=== PATIENT | female | born 1950 | race Caucasian/White ===

== ENCOUNTER 2018-01-01 14:41 | Emergency (ER) | payer MEDICARE, OTHER ==
[~2018-01-01] VITALS: Ht 167.6 cm; Wt 94.5 kg
[~2018-01-01 14:41] MED LIST: ASPI-1265 PO; BACL20TA11 PO; CLON0.2T37 PO; CLOP75TA33 PO; HYDR-3965 PO; HYT1T PO; LORA0.5T PO; LOSA50TA37 PO; NITR0.4T PO; PANT40TA4 PO; PARO-44 PO; SIMV40TA4 PO
[2018-01-01 14:49] VITALS: BP 195/92
[2018-01-01 15:18] LABS: BASOPHILS # (AUTO) 0.1 X10'3 (0-0.2); BASOPHILS % (AUTO) 0.5 % (0-1); EOSINOPHILS # (AUTO) 0.3 X10'3 (0-0.9); EOSINOPHILS % (AUTO) 2.6 % (0-6); HEMATOCRIT 45.7 % (35.0-45.0); HEMOGLOBIN 15.8 g/dl (12.0-16.0); LYMPHOCYTES # (AUTO) 2.5 X10'3 (1.1-4.8); LYMPHOCYTES % (AUTO) 23.5 % (21-51); MEAN CORPUSCULAR HEMOGLOBIN 30.4 PG (27.0-31.0); MEAN CORPUSCULAR HGB CONC 34.5 % (33.0-36.5); MEAN CORPUSCULAR VOLUME 88.2 FL (78-98); MEAN PLATELET VOLUME 8.7 FL (7.4-10.4); MONOCYTES # (AUTO) 0.7 X10'3 (0-0.9); MONOCYTES % (AUTO) 6.7 % (2-12); NEUTROPHILS % (AUTO) 66.7 % (42-75); PLATELET COUNT 174 X10'3 (140-440); RED BLOOD COUNT 5.18 X10'6 (4.20-5.60); RED CELL DISTRIBUTION WIDTH 14.8 % (11.5-14.5); WHITE BLOOD COUNT 10.6 X10'3 (4.5-11.0)
[2018-01-01 15:18] LABS: CLARITY,URINE SLIGHTLY CLOUDY (Clear); COLOR,URINE YELLOW (Yellow); GLUCOSE, URINE NEGATIVE (Neg); KETONES,URINE NEGATIVE (Neg); LEUKOCYTE ESTERASE ,URINE NEGATIVE (Neg); NITRITES, URINE NEGATIVE (Neg); OCCULT BLOOD,URINE TRACE-INTACT (Neg); PH,URINE 6.5 (4.8-8.0); PROTEIN,URINE NEGATIVE (Neg); UA COLLECTION TYPE CLN CATCH MIDSTREAM; UROBILINOGEN,URINE 0.2 E.U/dL (0.2-1.0)
[2018-01-01 15:24] LABS: BACTERIA,URINE 2+ /HPF (Neg); SQUAMOUS EPITHELIAL CELL,UR FEW /LPF (FEW); WBC,URINE 0-4 /HPF (0-4)
[2018-01-01 15:45] LABS: ALANINE AMINOTRANSFERASE 21 U/L (12-78); ALBUMIN 3.8 G/DL (3.4-5.0); ALBUMIN/GLOBULIN RATIO 0.8 (1.1-1.5); ALKALINE PHOSPHATASE 85 IU/L (46-116); ANION GAP 7 (8-16); ASPARTATE AMINO TRANSFERASE 15 U/L (10-37); BILIRUBIN,TOTAL 0.5 MG/DL (0.1-1.0); BLOOD UREA NITROGEN 12 MG/DL (7-18); BUN/CREATININE RATIO 13.6 (6.6-38.0); CHLORIDE 100 MMOL/L (99-107); CREATININE 0.88 MG/DL (0.40-0.90); GLUCOSE 112 MG/DL (70-104); LIPASE 68 U/L (73-393); POTASSIUM 3.5 MMOL/L (3.5-5.1); SODIUM 138 MMOL/L (135-145); TOTAL CARBON DIOXIDE 30.7 MMOL/L (24-32); TOTAL PROTEIN 8.5 G/DL (6.4-8.2); eGFR 64 ML/MIN
== END 2018-01-01 18:59 | disposition home or self-care (01) ==
LOC: ER 14:42
DX: R07.89 Other chest pain (principal); R10.11 Right upper quadrant pain; R11.2 Nausea with vomiting, unspecified; F17.200 Nicotine dependence, unspecified, uncomplicated; I10 Essential (primary) hypertension; J45.909 Unspecified asthma, uncomplicated; G89.29 Other chronic pain; E11.9 Type 2 diabetes mellitus without complications; Z98.61 Coronary angioplasty status; Z90.710 Acquired absence of both cervix and uterus; Z98.890 Other specified postprocedural states; F12.10 Cannabis abuse, uncomplicated; Z79.82 Long term (current) use of aspirin; Z79.899 Other long term (current) drug therapy; Z88.8 Allergy status to other drugs, medicaments and biological substances
CPT/HCPCS: 36415; 71045; 71100; 76700; 80053; 81001; 83690; 85025; 85610; 99285

== ENCOUNTER 2018-10-30 11:26 | Emergency (ER) | payer MEDICARE, OTHER ==
[~2018-10-30] VITALS: Ht 167.6 cm; Wt 94.8 kg
[~2018-10-30 11:26] MED LIST changes: -LOSA50TA37 PO; +LOSA50TA64 PO
[2018-10-30 12:32] LABS: BASOPHILS % (AUTO) 0.3 % (0-1); EOSINOPHILS # (AUTO) 0.2 X10'3 (0-0.9); EOSINOPHILS % (AUTO) 2.3 % (0-6); HEMATOCRIT 42.7 % (35.0-45.0); HEMOGLOBIN 14.5 g/dl (12.0-16.0); LYMPHOCYTES % (AUTO) 20.2 % (21-51); MEAN CORPUSCULAR HEMOGLOBIN 30.3 PG (27.0-31.0); MEAN CORPUSCULAR VOLUME 89.1 FL (78-98); MEAN PLATELET VOLUME 8.3 FL (7.4-10.4); MONOCYTES # (AUTO) 0.8 X10'3 (0-0.9); MONOCYTES % (AUTO) 8.1 % (2-12); NEUTROPHILS # (AUTO) 6.7 X10'3 (1.8-7.7); NEUTROPHILS % (AUTO) 69.1 % (42-75); PLATELET COUNT 177 X10'3 (140-440); RED BLOOD COUNT 4.79 X10'6 (4.20-5.60); RED CELL DISTRIBUTION WIDTH 13.9 % (11.5-14.5); WHITE BLOOD COUNT 9.8 X10'3 (4.5-11.0)
[2018-10-30 12:50] LABS: PARTIAL THROMBOPLASTIN TIME 26 SECONDS (22-32); PROTHROMBIN TIME 10.1 SECONDS (9.0-12.0)
[2018-10-30 12:56] LABS: ALANINE AMINOTRANSFERASE 27 U/L (12-78); ALBUMIN 3.7 G/DL (3.4-5.0); ALBUMIN/GLOBULIN RATIO 0.8 (1.1-1.5); ALKALINE PHOSPHATASE 86 IU/L (46-116); ANION GAP 10 (8-16); ASPARTATE AMINO TRANSFERASE 15 U/L (10-37); BILIRUBIN,TOTAL 0.5 MG/DL (0.1-1.0); BLOOD UREA NITROGEN 16 MG/DL (7-18); BUN/CREATININE RATIO 17.6 (6.6-38.0); CALCIUM 9.4 MG/DL (8.5-10.1); CHLORIDE 99 MMOL/L (99-107); CREATININE 0.91 MG/DL (0.40-0.90); GLUCOSE 117 MG/DL (70-104); POTASSIUM 3.8 MMOL/L (3.5-5.1); SODIUM 137 MMOL/L (135-145); TOTAL CARBON DIOXIDE 28.2 MMOL/L (24-32); TOTAL PROTEIN 8.2 G/DL (6.4-8.2); eGFR 62 ML/MIN
[2018-10-30] MEDS ORDERED: TAM75C PO (13:01)
[2018-10-30 13:02] VITALS: BP 136/68
[2018-10-30] MEDS ORDERED: oseltamivir phos 75mg capsule PO ONE (13:05)
[2018-10-30] MEDS ORDERED: acetaminophen 325mg tablet PO ONE (13:05)
== END 2018-10-30 13:30 | disposition home or self-care (01) ==
LOC: ER 11:27
DX: J06.9 Acute upper respiratory infection, unspecified (principal); J02.9 Acute pharyngitis, unspecified; I10 Essential (primary) hypertension; J45.909 Unspecified asthma, uncomplicated; E11.9 Type 2 diabetes mellitus without complications; G89.29 Other chronic pain; F17.200 Nicotine dependence, unspecified, uncomplicated; F12.90 Cannabis use, unspecified, uncomplicated; Z95.5 Presence of coronary angioplasty implant and graft; Z90.710 Acquired absence of both cervix and uterus; Z98.890 Other specified postprocedural states; Z88.8 Allergy status to other drugs, medicaments and biological substances; Z79.82 Long term (current) use of aspirin; Z79.899 Other long term (current) drug therapy
CPT/HCPCS: 36415; 71045; 80053; 84484; 85025; 85610; 85730; 93005; 99284

== ENCOUNTER 2019-09-28 09:52 | Emergency (ER) | payer MEDICARE ==
[~2019-09-28] VITALS: Ht 167.6 cm; Wt 103.0 kg
[~2019-09-28 09:52] MED LIST changes: +SIMV-45 PO; -SIMV40TA4 PO
[2019-09-28 10:07] VITALS: BP 158/70
[2019-09-28] MEDS ORDERED: orphenadrine citrate 60mg/2ml inj. IM ONE (11:20)
[2019-09-28] MEDS ORDERED: ketorolac tromethamine 15mg/ml inj. IM ONE (11:20)
== END 2019-09-28 12:25 | disposition home or self-care (01) ==
LOC: ER 09:53
DX: M48.56XA Collapsed vertebra, not elsewhere classified, lumbar region, initial encounter for fracture (principal); M51.37 Other intervertebral disc degeneration, lumbosacral region; M25.552 Pain in left hip; I10 Essential (primary) hypertension; J45.909 Unspecified asthma, uncomplicated; E11.9 Type 2 diabetes mellitus without complications; G89.29 Other chronic pain; M19.90 Unspecified osteoarthritis, unspecified site; Z95.5 Presence of coronary angioplasty implant and graft; Z90.710 Acquired absence of both cervix and uterus; Z98.890 Other specified postprocedural states; Z88.8 Allergy status to other drugs, medicaments and biological substances; Z79.82 Long term (current) use of aspirin; Z79.899 Other long term (current) drug therapy
CPT/HCPCS: 72100; 73502; 96372; 99284; J1885; J2360

== ENCOUNTER 2019-12-28 10:08 | Observation (INO) | payer MEDICARE ==
[~2019-12-28] VITALS: Ht 167.6 cm; Wt 107.7 kg
[2019-12-28 10:41] LABS: BASOPHILS # (AUTO) 0.1 X10'3 (0-0.2); BASOPHILS % (AUTO) 0.8 % (0-1); EOSINOPHILS # (AUTO) 0.1 X10'3 (0-0.9); EOSINOPHILS % (AUTO) 1.1 % (0-6); HEMATOCRIT 40.7 % (35.0-45.0); HEMOGLOBIN 14.1 g/dl (12.0-16.0); LYMPHOCYTES # (AUTO) 1.3 X10'3 (1.1-4.8); LYMPHOCYTES % (AUTO) 14.9 % (21-51); MEAN CORPUSCULAR HEMOGLOBIN 30.7 PG (27.0-31.0); MEAN CORPUSCULAR HGB CONC 34.7 g/dL (33.0-36.5); MEAN CORPUSCULAR VOLUME 88.5 FL (78-98); MONOCYTES # (AUTO) 0.5 X10'3 (0-0.9); MONOCYTES % (AUTO) 5.9 % (2-12); NEUTROPHILS # (AUTO) 6.8 X10'3 (1.8-7.7); NEUTROPHILS % (AUTO) 77.3 % (42-75); PLATELET COUNT 151 X10'3 (140-440); RED CELL DISTRIBUTION WIDTH 14.7 % (11.5-14.5); WHITE BLOOD COUNT 8.8 X10'3 (4.5-11.0)
[2019-12-28 10:51] LABS: ALANINE AMINOTRANSFERASE 19 U/L (12-78); ALBUMIN 3.4 G/DL (3.4-5.0); ALBUMIN/GLOBULIN RATIO 0.9 (1.1-1.5); ALKALINE PHOSPHATASE 74 IU/L (46-116); ANION GAP 6 (8-16); ASPARTATE AMINO TRANSFERASE 14 U/L (10-37); BILIRUBIN,TOTAL 0.4 MG/DL (0.1-1.0); BLOOD UREA NITROGEN 14 MG/DL (7-18); BUN/CREATININE RATIO 14.4 (6.6-38.0); CALCIUM 8.4 MG/DL (8.5-10.1); CHLORIDE 107 MMOL/L (99-107); CREATININE 0.97 MG/DL (0.40-0.90); GLUCOSE 143 MG/DL (70-104); POTASSIUM 3.7 MMOL/L (3.5-5.1); SODIUM 142 MMOL/L (135-145); TOTAL CARBON DIOXIDE 28.9 MMOL/L (24-32); eGFR 57 ML/MIN
[2019-12-28] MEDS ORDERED: OMEP-50 PO (11:47)
[2019-12-28] MEDS ORDERED: GABA-532 PO (11:50)
[2019-12-28] MEDS ORDERED: AMLO5TAB16 PO (11:50)
[2019-12-28] MEDS ORDERED: FURO20TA4 PO (11:50)
[2019-12-28] MEDS ORDERED: morphine 2 MG/ML inj. syringe IV PRN ×2 (12:00)
[2019-12-28] MEDS ORDERED: magnesium hydroxide 30ml (MOM) UD suspension PO PRN (12:00)
[2019-12-28] MEDS ORDERED: mag hydrox/Alum hydrox/simeth 30ml oral suspension PO PRN (12:00)
[2019-12-28] MEDS ORDERED: nitroGLYCERIN 0.4mg/hour patch TD ONE ×2 (12:00)
[2019-12-28] MEDS ORDERED: acetaminophen 325mg tablet PO PRN (12:00)
[2019-12-28 13:00] VITALS: BP 120/69
--- NOTE | 2019-12-28 13:55 | NUR ---
Patient admitted to PCU 3018A from ED. Patient able to self transfer from ED gurney to bed with SBA. Oriented to room and call light use. Patient items in reach. No complaints of chest pain or shortness of breath at this time. Admit VS taken and are stable. No signs of distress. MRSA swab taken and tele monitor applied. Will continue to monitor.
[2019-12-28] MEDS: ondansetron/PF 4mg/2ml inj IV PRN (14:26)
[2019-12-28] MEDS: normal saline 1000ml 1,000 ML IV SCH ×2 (14:29→23:24)
[2019-12-28] MEDS ORDERED: LORazepam 0.5 MG tablet PO PRN (14:50)
[2019-12-28] MEDS ORDERED: nitroGLYCERIN 0.4mg SUBLingual tab SL PRN (14:50)
--- NOTE | 2019-12-28 14:52 | NUR ---
PAGER ID: [phone] MESSAGE: Iram mcclelland [phone]. RE Ricci Billings [id number]. 3 hour troponin is 0.07, increased from 0.04 on initial. Has NTG patch, no current chest pain, has episodes of CP which have resolved. Thanks!
[2019-12-28] MEDS ORDERED: heparin 10,000 units/1 ML INJ IV PRN (14:55)
[2019-12-28] MEDS ORDERED: heparin 10,000 units/1 ML INJ IV ONE (14:55)
[2019-12-28 15:00] VITALS: BP 132/62
--- NOTE | 2019-12-28 15:45 | NUR ---
Rapid response called at this time, see intervention note for details.
[2019-12-28] MEDS ORDERED: LORazepam 2 mg/ml vial ONE (15:52)
[2019-12-28] MEDS ORDERED: LORazepam 2 mg/ml vial IV PRN (15:55)
--- NOTE | 2019-12-28 16:20 | NUR ---
Patient states that she does not take Plavix any longer, was on it prior after her cath but does not take this any longer.
[2019-12-28 16:24] LABS: BASOPHILS # (AUTO) 0.1 X10'3 (0-0.2); BASOPHILS % (AUTO) 0.9 % (0-1); EOSINOPHILS # (AUTO) 0.1 X10'3 (0-0.9); EOSINOPHILS % (AUTO) 1.4 % (0-6); HEMATOCRIT 45.5 % (35.0-45.0); HEMOGLOBIN 15.4 g/dl (12.0-16.0); LYMPHOCYTES # (AUTO) 2.6 X10'3 (1.1-4.8); LYMPHOCYTES % (AUTO) 27.8 % (21-51); MEAN CORPUSCULAR HEMOGLOBIN 30.4 PG (27.0-31.0); MEAN CORPUSCULAR VOLUME 89.5 FL (78-98); MEAN PLATELET VOLUME 8.9 FL (7.4-10.4); MONOCYTES # (AUTO) 0.6 X10'3 (0-0.9); MONOCYTES % (AUTO) 6.2 % (2-12); NEUTROPHILS # (AUTO) 5.9 X10'3 (1.8-7.7); NEUTROPHILS % (AUTO) 63.7 % (42-75); PLATELET COUNT 164 X10'3 (140-440); RED BLOOD COUNT 5.08 X10'6 (4.20-5.60); RED CELL DISTRIBUTION WIDTH 14.6 % (11.5-14.5); WHITE BLOOD COUNT 9.2 X10'3 (4.5-11.0)
[2019-12-28 16:26] LABS: PARTIAL THROMBOPLASTIN TIME 24 SECONDS (22-32)
[2019-12-28] MEDS: HYDROcodone/acetaminophen 5mg/325mg tablet PO PRN ×2 (16:29→23:22)
[2019-12-28] MEDS: heparin 25,000 UNIT/250ml bag 250 ML IV SCH ×2 (16:42→23:21)
--- NOTE | 2019-12-28 17:24 | NUR ---
PAGER ID: [phone] MESSAGE: Iram krystin [phone]. Ricci Billings [id number]. Patient's 6 hour trop is 0.08. On heparin drip. Also patient does not take Plavix any longer, do you want to d/c this medication? Thanks
[2019-12-28 18:00] VITALS: BP 109/50
--- NOTE | 2019-12-28 18:00 | NUR ---
Patient in room PCU 3018. I have received report from GIA LEACH and had the opportunity to ask questions and assume patient care.
--- NOTE | 2019-12-28 18:54 | NUR ---
Problems reprioritized. Patient report given, questions answered & plan of care reviewed with Lissette LEACH.
[2019-12-28] MEDS ORDERED: heparin, porcine 5000 units/ml vial SQ SCH (20:00)
[2019-12-28] MEDS: pantoprazole 40mg Tablet.DR PO SCH (21:25)
[2019-12-28] MEDS: cloNIDine 0.1 mg tablet PO SCH (21:25)
[2019-12-28] MEDS: gabapentin 300mg capsule PO SCH (21:25)
[2019-12-28] MEDS: Terazosin 1mg capsule PO SCH (21:26)
[2019-12-28] MEDS: losartan 50mg tablet PO SCH (21:26)
[2019-12-28 22:00] VITALS: BP 155/68
[2019-12-29] VITALS (14 sets, daily range): BP systolic 116–165; BP diastolic 46–82
[2019-12-29 05:49] LABS: ALBUMIN 3.1 G/DL (3.4-5.0); ANION GAP 5 (8-16); BLOOD UREA NITROGEN 17 MG/DL (7-18); BUN/CREATININE RATIO 17.9 (6.6-38.0); CALCIUM 8.9 MG/DL (8.5-10.1); CHLORIDE 108 MMOL/L (99-107); CREATININE 0.95 MG/DL (0.40-0.90); GLUCOSE 116 MG/DL (70-104); POTASSIUM 3.9 MMOL/L (3.5-5.1); SODIUM 141 MMOL/L (135-145); TOTAL CARBON DIOXIDE 28.4 MMOL/L (24-32); eGFR 58 ML/MIN
--- NOTE | 2019-12-29 06:00 | NUR ---
Problems reprioritized. Patient report given, questions answered & plan of care reviewed with LAMONT RN.
[2019-12-29 06:13] LABS: BASOPHILS # (AUTO) 0.1 X10'3 (0-0.2); BASOPHILS % (AUTO) 0.6 % (0-1); EOSINOPHILS # (AUTO) 0.2 X10'3 (0-0.9); EOSINOPHILS % (AUTO) 1.8 % (0-6); HEMATOCRIT 39.6 % (35.0-45.0); HEMOGLOBIN 13.6 g/dl (12.0-16.0); LYMPHOCYTES # (AUTO) 3.1 X10'3 (1.1-4.8); LYMPHOCYTES % (AUTO) 34.1 % (21-51); MEAN CORPUSCULAR HEMOGLOBIN 30.4 PG (27.0-31.0); MEAN CORPUSCULAR HGB CONC 34.3 g/dL (33.0-36.5); MEAN CORPUSCULAR VOLUME 88.7 FL (78-98); MEAN PLATELET VOLUME 9.5 FL (7.4-10.4); MONOCYTES # (AUTO) 0.7 X10'3 (0-0.9); MONOCYTES % (AUTO) 7.6 % (2-12); NEUTROPHILS # (AUTO) 5.1 X10'3 (1.8-7.7); NEUTROPHILS % (AUTO) 55.9 % (42-75); PLATELET COUNT 145 X10'3 (140-440); RED BLOOD COUNT 4.47 X10'6 (4.20-5.60); RED CELL DISTRIBUTION WIDTH 14.9 % (11.5-14.5); WHITE BLOOD COUNT 9.1 X10'3 (4.5-11.0)
[2019-12-29] MEDS: ondansetron/PF 4mg/2ml inj IV PRN (06:17)
--- NOTE | 2019-12-29 06:30 | NUR ---
Patient in room PCU 3018. I have received report from HANY Mclaughlin and had the opportunity to ask questions and assume patient care.
[2019-12-29] MEDS: normal saline 1000ml 1,000 ML IV SCH ×2 (07:57→20:11)
[2019-12-29] MEDS: SIMVASTATIN 60 MG PO SCH (08:00)
[2019-12-29] MEDS: losartan 50mg tablet PO SCH ×2 (09:55→20:11)
[2019-12-29] MEDS: amLODIPine 5mg tablet PO SCH (09:55)
[2019-12-29] MEDS: clopidogrel 75mg tablet PO SCH (09:55)
[2019-12-29] MEDS: cloNIDine 0.1 mg tablet PO SCH ×3 (09:55→20:11)
[2019-12-29] MEDS: furosemide 20MG tablet PO SCH ×2 (09:56→15:09)
[2019-12-29] MEDS: gabapentin 300mg capsule PO SCH ×3 (09:56→20:11)
[2019-12-29] MEDS: aspirin 81mg tab.chew PO SCH (09:56)
[2019-12-29] MEDS ORDERED: diphenhydrAMINE 25mg capsule PO ONE (12:15)
[2019-12-29] MEDS ORDERED: LORazepam 1 MG tablet PO PRN (12:35)
[2019-12-29] MEDS: HYDROcodone/acetaminophen 5mg/325mg tablet PO PRN ×2 (12:57→20:11)
[2019-12-29] MEDS ORDERED: fentaNYL/PF 50MCG/1 ML 2ML syringe ONE ×2 (13:32→14:08)
[2019-12-29] MEDS ORDERED: LIDOcaine 1% (10mg/ml)w/preservative injection 20ml MDV ONE (13:33)
[2019-12-29] MEDS ORDERED: iohexol 350 MG/ML 50ML vial IV ONE (13:33)
[2019-12-29] MEDS ORDERED: midazolam 2 mg/2 ml injection ONE ×2 (13:33→14:08)
[2019-12-29] MEDS ORDERED: iohexol 350MG/ML 100ml bottle IV ONE (13:33)
[2019-12-29] MEDS ORDERED: heparin 25,000 UNIT/250ml bag 250 ML IV ONE (13:48)
[2019-12-29] MEDS ORDERED: OXAZEpam 15mg capsule PO PRN (14:55)
[2019-12-29] MEDS ORDERED: normal saline 1000ml 1,000 ML IV ONE (14:55)
--- NOTE | 2019-12-29 15:30 | NUR ---
pt arrived from laboratory director. cath site is soft and without ecchymosis or hematoma; nontender. pt is to lie flat for 6 hours, until 0. post op vs initiated. placed on 4L O2 by RN from laboratory director. pt put in reverse Trendelenburg so that she may remain flat, but eat her lunch. will continue to monitor.
--- NOTE | 2019-12-29 16:54 | NUR ---
pt groin site is soft, without ecchymosis or hematoma. HR is slightly decreased in the 50's, but the pt is currently sleeping and easily aroused. O2 decreased to 1L from 2L and she is maintaining a saturation above 95%. will allow the pt to rest and continue to monitor.
--- NOTE | 2019-12-29 18:32 | NUR ---
Sent to Dr Matthews PAGER ID: [phone] MESSAGE: RE: Jeannette Billings [id number]. Pt having pain in RLL. Groin site soft, no hematoma. Please advise. -Mavis [phone]
--- NOTE | 2019-12-29 18:40 | NUR ---
Problems reprioritized. Patient report given, questions answered & plan of care reviewed with HANY Gamble.
--- NOTE | 2019-12-29 18:40 | NUR ---
Patient in room PCU 3018. I have received report from Shaunna LEACH and had the opportunity to ask questions and assume patient care.
--- NOTE | 2019-12-29 18:43 | NUR ---
Dr Matthews states the pt has been c/o belly pain x 2-3 days. Continue to monitor pt per Dr Matthews.
[2019-12-29] MEDS: pantoprazole 40mg Tablet.DR PO SCH (20:11)
[2019-12-29] MEDS: Terazosin 1mg capsule PO SCH (20:11)
[2019-12-30 02:00] VITALS: BP 138/60
[2019-12-30] MEDS: normal saline 1000ml 1,000 ML IV SCH (03:57)
[2019-12-30 05:39] LABS: ALBUMIN 3.1 G/DL (3.4-5.0); ANION GAP 7 (8-16); BLOOD UREA NITROGEN 17 MG/DL (7-18); BUN/CREATININE RATIO 18.1 (6.6-38.0); CALCIUM 8.7 MG/DL (8.5-10.1); CHLORIDE 105 MMOL/L (99-107); CREATININE 0.94 MG/DL (0.40-0.90); GLUCOSE 105 MG/DL (70-104); POTASSIUM 3.7 MMOL/L (3.5-5.1); SODIUM 141 MMOL/L (135-145); TOTAL CARBON DIOXIDE 29.3 MMOL/L (24-32); eGFR 59 ML/MIN
[2019-12-30 06:00] VITALS: BP 152/56
--- NOTE | 2019-12-30 06:19 | NUR ---
Problems reprioritized. Patient report given, questions answered & plan of care reviewed with Shaunna RN.
--- NOTE | 2019-12-30 06:24 | NUR ---
Patient in room PCU 3018. I have received report from HANY Gamble and had the opportunity to ask questions and assume patient care.
[2019-12-30 06:36] LABS: BASOPHILS % (AUTO) 0.6 % (0-1); EOSINOPHILS # (AUTO) 0.1 X10'3 (0-0.9); EOSINOPHILS % (AUTO) 1.8 % (0-6); HEMATOCRIT 40.8 % (35.0-45.0); HEMOGLOBIN 13.7 g/dl (12.0-16.0); LYMPHOCYTES # (AUTO) 2.2 X10'3 (1.1-4.8); LYMPHOCYTES % (AUTO) 31.6 % (21-51); MEAN CORPUSCULAR HEMOGLOBIN 29.9 PG (27.0-31.0); MEAN CORPUSCULAR HGB CONC 33.7 g/dL (33.0-36.5); MEAN CORPUSCULAR VOLUME 88.7 FL (78-98); MEAN PLATELET VOLUME 9.2 FL (7.4-10.4); MONOCYTES # (AUTO) 0.6 X10'3 (0-0.9); NEUTROPHILS # (AUTO) 4.1 X10'3 (1.8-7.7); PLATELET COUNT 145 X10'3 (140-440); RED CELL DISTRIBUTION WIDTH 14.9 % (11.5-14.5); WHITE BLOOD COUNT 7.1 X10'3 (4.5-11.0)
[2019-12-30] MEDS: ondansetron/PF 4mg/2ml inj IV PRN (07:39)
[2019-12-30] MEDS: cloNIDine 0.1 mg tablet PO SCH (07:43)
[2019-12-30] MEDS: clopidogrel 75mg tablet PO SCH (07:43)
[2019-12-30] MEDS: gabapentin 300mg capsule PO SCH (07:43)
[2019-12-30] MEDS: aspirin 81mg tab.chew PO SCH (07:43)
[2019-12-30] MEDS: amLODIPine 5mg tablet PO SCH (07:43)
[2019-12-30] MEDS: losartan 50mg tablet PO SCH (07:43)
[2019-12-30] MEDS: HYDROcodone/acetaminophen 5mg/325mg tablet PO PRN (07:43)
[2019-12-30] MEDS: furosemide 20MG tablet PO SCH (07:43)
[2019-12-30] MEDS: SIMVASTATIN 60 MG PO SCH (07:45)
--- NOTE | 2019-12-30 07:48 | NUR ---
pt c/o pain starting from LUQ up towards left chest; also c/o of pain in left groin down left leg. will inform doctor, and continue to monitor pt.
--- NOTE | 2019-12-30 11:55 | NUR ---
pt discharged. IV removed, tele removed, all belongings sent with pt. Wheeled down by hospital staff. Left in private vehicle with son. no new Rx. pt will set follow up appt with primary care.
--- NOTE | 2019-12-31 16:29 | NUR ---
Case Management DC follow up: spoke to pt via telephone. Reports feeling better, but has had a 1 dizzy spell, a few episodes of CP in the morning which may be r/t anxiety, BP systolic in the 200s this morning, called PCP/ has appt tomorrow 01/01/2020 in the AM for assessment. denies s/s infection to R groin/angiogram site. pt Denies acute/sustained CP, emergent general pain, SOB, respiratory distress, NV, dizziness, syncope episodes, abd pain, ROBERTO, blurry vision. Went over orthostatic hypotension protocol as a precaution. Verbalizes understanding of medications and why prescribed. Taking as ordered, no ase noted r/t polypharmacy/new meds. verbalizes understanding of s/s that would warrant -11/ER visit for evaluation. Acknowledges importance of scheduling/keeping appointments w/PCP Jose D/[facility] 01/01/20/referrals/specialists. Needs met, questions answered at DC. No further questions at this time.
== END 2019-12-30 11:38 | disposition home or self-care (01) ==
LOC: ER 10:08 → ED HOLD 11:57 → PCU 3S 13:00
PROVIDERS: ADMIT Family Medicine; ATTEND Family Medicine
DX: R07.89 Other chest pain (principal); I25.110 Atherosclerotic heart disease of native coronary artery with unstable angina pectoris; E11.9 Type 2 diabetes mellitus without complications; I10 Essential (primary) hypertension; E78.5 Hyperlipidemia, unspecified; E66.9 Obesity, unspecified; F41.9 Anxiety disorder, unspecified; J45.909 Unspecified asthma, uncomplicated; G89.4 Chronic pain syndrome; G47.31 Primary central sleep apnea; F17.210 Nicotine dependence, cigarettes, uncomplicated; Z98.1 Arthrodesis status; Z90.710 Acquired absence of both cervix and uterus; Z95.5 Presence of coronary angioplasty implant and graft; Z99.89 Dependence on other enabling machines and devices; Z79.84 Long term (current) use of oral hypoglycemic drugs; Z79.899 Other long term (current) drug therapy; Z88.8 Allergy status to other drugs, medicaments and biological substances; Z68.38 Body mass index [BMI] 38.0-38.9, adult
CPT/HCPCS: 36415; 71045; 80048; 80053; 82948; 84484; 85025; 85347; 85610; 85730; 87081; 93005; 93306; 93458; 94660; 96361; 96365; 96366; 96375; 96376; 99285; C1769; G0378; J1644; J2001; J2060; J2250; J2405; J3010; J7030; Q0163; Q9967; 99152; A4620; A6258; C1760

== ENCOUNTER 2020-01-27 16:15 | Emergency (ER) | payer MEDICARE ==
[~2020-01-27] VITALS: Ht 167.6 cm; Wt 100.9 kg
[~2020-01-27 16:15] MED LIST changes: +AMLO5TAB16 PO; -BACL20TA11 PO; -CLOP75TA33 PO; +FURO20TA4 PO; +GABA-532 PO; +OMEP-50 PO; -PANT40TA4 PO; -PARO-44 PO
[2020-01-27 17:18] LABS: BASOPHILS # (AUTO) 0.1 X10'3 (0-0.2); BASOPHILS % (AUTO) 0.9 % (0-1); EOSINOPHILS # (AUTO) 0.2 X10'3 (0-0.9); EOSINOPHILS % (AUTO) 3.2 % (0-6); HEMATOCRIT 45.2 % (35.0-45.0); HEMOGLOBIN 15.2 g/dl (12.0-16.0); LYMPHOCYTES # (AUTO) 2.5 X10'3 (1.1-4.8); LYMPHOCYTES % (AUTO) 33.1 % (21-51); MEAN CORPUSCULAR HEMOGLOBIN 30.1 PG (27.0-31.0); MEAN CORPUSCULAR HGB CONC 33.6 g/dL (33.0-36.5); MEAN CORPUSCULAR VOLUME 89.5 FL (78-98); MONOCYTES # (AUTO) 0.6 X10'3 (0-0.9); MONOCYTES % (AUTO) 8.5 % (2-12); NEUTROPHILS # (AUTO) 4.1 X10'3 (1.8-7.7); NEUTROPHILS % (AUTO) 54.3 % (42-75); PLATELET COUNT 156 X10'3 (140-440); RED BLOOD COUNT 5.04 X10'6 (4.20-5.60); RED CELL DISTRIBUTION WIDTH 14.8 % (11.5-14.5); WHITE BLOOD COUNT 7.5 X10'3 (4.5-11.0)
[2020-01-27 17:58] LABS: ALANINE AMINOTRANSFERASE 24 U/L (12-78); ALBUMIN 4.1 G/DL (3.4-5.0); ALKALINE PHOSPHATASE 83 IU/L (46-116); ANION GAP 8 (8-16); ASPARTATE AMINO TRANSFERASE 19 U/L (10-37); BILIRUBIN,TOTAL 0.5 MG/DL (0.1-1.0); BLOOD UREA NITROGEN 23 MG/DL (7-18); BUN/CREATININE RATIO 20.5 (6.6-38.0); CALCIUM 9.7 MG/DL (8.5-10.1); CHLORIDE 104 MMOL/L (99-107); CREATININE 1.12 MG/DL (0.40-0.90); GLUCOSE 138 MG/DL (70-104); POTASSIUM 3.7 MMOL/L (3.5-5.1); SODIUM 142 MMOL/L (135-145); TOTAL CARBON DIOXIDE 29.8 MMOL/L (24-32); TOTAL PROTEIN 8.4 G/DL (6.4-8.2); eGFR 48 ML/MIN
[2020-01-27 18:44] VITALS: BP 162/72
== END 2020-01-27 18:47 | disposition home or self-care (01) ==
LOC: ER 16:15
DX: I12.9 Hypertensive chronic kidney disease with stage 1 through stage 4 chronic kidney disease, or unspecified chronic kidney disease (principal); E11.22 Type 2 diabetes mellitus with diabetic chronic kidney disease; N18.9 Chronic kidney disease, unspecified; R60.0 Localized edema; J45.909 Unspecified asthma, uncomplicated; G89.29 Other chronic pain; F17.200 Nicotine dependence, unspecified, uncomplicated; F12.90 Cannabis use, unspecified, uncomplicated; Z98.61 Coronary angioplasty status; Z90.710 Acquired absence of both cervix and uterus; Z98.890 Other specified postprocedural states; Z88.8 Allergy status to other drugs, medicaments and biological substances; Z79.82 Long term (current) use of aspirin; Z79.899 Other long term (current) drug therapy
CPT/HCPCS: 36415; 71045; 80053; 83880; 84484; 85025; 93005; 99285

== ENCOUNTER 2021-01-02 20:09 | Emergency (ER) | payer MEDICARE, SELFPAY ==
[~2021-01-02] VITALS: Ht 167.6 cm; Wt 97.3 kg
[~2021-01-02 20:09] MED LIST changes: -AMLO5TAB16 PO; +CARV12.5 PO; +CLON0.1T51 PO; -CLON0.2T37 PO; -FURO20TA4 PO; -HYT1T PO; +LOSA100T57 PO; -LOSA50TA64 PO; +NIFE90TA44 PO; -OMEP-50 PO; +OXYC10TA47 PO; +ROSU5TAB PO; -SIMV-45 PO; +TERA2CAP4 PO
[2021-01-02 21:12] LABS: BASOPHILS # (AUTO) 0.1 X10'3 (0-0.2); EOSINOPHILS # (AUTO) 0.1 X10'3 (0-0.9); EOSINOPHILS % (AUTO) 1.4 % (0-6); HEMATOCRIT 45.3 % (35.0-45.0); HEMOGLOBIN 15.4 g/dl (12.0-16.0); MEAN CORPUSCULAR HEMOGLOBIN 30.1 PG (27.0-31.0); MEAN CORPUSCULAR VOLUME 88.7 FL (78-98); MEAN PLATELET VOLUME 8.4 FL (7.4-10.4); MONOCYTES # (AUTO) 0.7 X10'3 (0-0.9); MONOCYTES % (AUTO) 7.2 % (2-12); NEUTROPHILS # (AUTO) 6.3 X10'3 (1.8-7.7); NEUTROPHILS % (AUTO) 61.4 % (42-75); PLATELET COUNT 159 X10'3 (140-440); RED BLOOD COUNT 5.11 X10'6 (4.20-5.60); RED CELL DISTRIBUTION WIDTH 14.9 % (11.5-14.5); WHITE BLOOD COUNT 10.3 X10'3 (4.5-11.0)
[2021-01-02] MEDS ORDERED: HYDROcodone/acetaminophen 5mg/325mg tablet PO ONE (21:25)
[2021-01-02] MEDS ORDERED: ondansetron 4mg rapidly disintigrating tab PO ONE (21:25)
[2021-01-02 21:32] LABS: ALANINE AMINOTRANSFERASE 19 U/L (12-78); ALBUMIN 3.9 G/DL (3.4-5.0); ALBUMIN/GLOBULIN RATIO 0.9 (1.1-1.5); ALKALINE PHOSPHATASE 75 IU/L (46-116); ANION GAP 11 (8-16); ASPARTATE AMINO TRANSFERASE 15 U/L (10-37); BILIRUBIN,TOTAL 0.4 MG/DL (0.1-1.0); BLOOD UREA NITROGEN 18 MG/DL (7-18); BUN/CREATININE RATIO 17.1 (6.6-38.0); CALCIUM 10.2 MG/DL (8.5-10.1); CHLORIDE 101 MMOL/L (99-107); CREATININE 1.05 MG/DL (0.40-0.90); GLUCOSE 123 MG/DL (70-104); LIPASE 87 U/L (73-393); POTASSIUM 3.7 MMOL/L (3.5-5.1); SODIUM 139 MMOL/L (135-145); TOTAL CARBON DIOXIDE 27.5 MMOL/L (24-32); TOTAL PROTEIN 8.1 G/DL (6.4-8.2); eGFR 52 ML/MIN
[2021-01-02] MEDS ORDERED: iohexol 300mg/ml 100ml inj. ONE (22:43)
[2021-01-02 23:23] VITALS: BP 113/35
[2021-01-03 00:07] LABS: CLARITY,URINE CLEAR (Clear); COLOR,URINE YELLOW (Yellow); GLUCOSE, URINE NEGATIVE (Neg); KETONES,URINE NEGATIVE (Neg); LEUKOCYTE ESTERASE ,URINE NEGATIVE (Neg); NITRITES, URINE NEGATIVE (Neg); OCCULT BLOOD,URINE SMALL (Neg); PH,URINE 5.5 (4.8-8.0); PROTEIN,URINE NEGATIVE (Neg); UROBILINOGEN,URINE 0.2 E.U/dL (0.2-1.0)
[2021-01-03 00:14] LABS: UA COLLECTION TYPE CLN CATCH MIDSTREAM
[2021-01-03 00:15] LABS: BACTERIA,URINE FEW /HPF (Neg); RBC,URINE 0-2 /HPF (0-2); SQUAMOUS EPITHELIAL CELL,UR FEW /LPF (FEW); WBC,URINE NONE SEEN /HPF (0-4)
== END 2021-01-03 00:40 | disposition home or self-care (01) ==
LOC: ER 20:10
DX: K80.50 Calculus of bile duct without cholangitis or cholecystitis without obstruction (principal); N64.4 Mastodynia; I10 Essential (primary) hypertension; J45.909 Unspecified asthma, uncomplicated; E11.9 Type 2 diabetes mellitus without complications; G89.29 Other chronic pain; M19.90 Unspecified osteoarthritis, unspecified site; Z98.61 Coronary angioplasty status; Z90.710 Acquired absence of both cervix and uterus; F12.90 Cannabis use, unspecified, uncomplicated; Z88.8 Allergy status to other drugs, medicaments and biological substances; Z79.82 Long term (current) use of aspirin; Z79.899 Other long term (current) drug therapy
CPT/HCPCS: 36415; 71045; 74177; 76700; 80053; 81001; 83690; 85025; 99285; Q9967

== ENCOUNTER 2021-01-31 07:42 | Inpatient (IN) | payer BC, MEDICARE ==
[2021-01-31] VITALS (17 sets, daily range): BP systolic 133–190; BP diastolic 60–85
[~2021-01-31] VITALS: Ht 167.6 cm; Wt 97.0 kg
[2021-01-31] MEDS ORDERED: morphine 4 MG/ML inj SYRINge IV ONE (08:10)
[2021-01-31] MEDS ORDERED: LORazepam 2 mg/ml vial IV ONE (08:10)
[2021-01-31] MEDS ORDERED: morphine 2 MG/ML inj. syringe IV PRN ×4 (08:10→14:50)
[2021-01-31] MEDS ORDERED: normal saline 1000ML IV soln IVB ONE (08:10)
[2021-01-31] MEDS ORDERED: ondansetron/PF 4mg/2ml inj IV ONE (08:10)
[2021-01-31 08:45] LABS: BASOPHILS # (AUTO) 0.1 X10'3 (0-0.2); EOSINOPHILS # (AUTO) 0.1 X10'3 (0-0.9); EOSINOPHILS % (AUTO) 1.9 % (0-6); HEMATOCRIT 50.8 % (35.0-45.0); HEMOGLOBIN 17.1 g/dl (12.0-16.0); MEAN CORPUSCULAR HEMOGLOBIN 30.1 PG (27.0-31.0); MEAN CORPUSCULAR HGB CONC 33.6 g/dL (33.0-36.5); MEAN CORPUSCULAR VOLUME 89.6 FL (78-98); MEAN PLATELET VOLUME 9.1 FL (7.4-10.4); MONOCYTES # (AUTO) 0.5 X10'3 (0-0.9); MONOCYTES % (AUTO) 7.8 % (2-12); NEUTROPHILS % (AUTO) 59.3 % (42-75); PLATELET COUNT 163 X10'3 (140-440); RED BLOOD COUNT 5.67 X10'6 (4.20-5.60); RED CELL DISTRIBUTION WIDTH 15.3 % (11.5-14.5); WHITE BLOOD COUNT 6.8 X10'3 (4.5-11.0)
[2021-01-31 08:54] LABS: ALANINE AMINOTRANSFERASE 25 U/L (12-78); ALBUMIN 4.5 G/DL (3.4-5.0); ALKALINE PHOSPHATASE 86 IU/L (46-116); ANION GAP 11 (8-16); ASPARTATE AMINO TRANSFERASE 17 U/L (10-37); BILIRUBIN,TOTAL 0.5 MG/DL (0.1-1.0); BLOOD UREA NITROGEN 12 MG/DL (7-18); CALCIUM 10.5 MG/DL (8.5-10.1); CHLORIDE 103 MMOL/L (99-107); GLUCOSE 135 MG/DL (70-104); LIPASE 55 U/L (73-393); POTASSIUM 4.3 MMOL/L (3.5-5.1); SODIUM 142 MMOL/L (135-145); TOTAL CARBON DIOXIDE 27.6 MMOL/L (24-32); TOTAL PROTEIN 9.1 G/DL (6.4-8.2); eGFR 55 ML/MIN
[2021-01-31 09:16] LABS: CLARITY,URINE CLOUDY (Clear); COLOR,URINE YELLOW (Yellow); GLUCOSE, URINE NEGATIVE (Neg); KETONES,URINE NEGATIVE (Neg); LEUKOCYTE ESTERASE ,URINE NEGATIVE (Neg); NITRITES, URINE POSITIVE (Neg); OCCULT BLOOD,URINE MODERATE (Neg); PROTEIN,URINE 100 mg/dl (Neg)
[2021-01-31 09:21] LABS: UA COLLECTION TYPE CLN CATCH MIDSTREAM
[2021-01-31 09:29] LABS: SQUAMOUS EPITHELIAL CELL,UR MODERATE /LPF (FEW)
[2021-01-31 09:30] LABS: BACTERIA,URINE 3+ /HPF (Neg); MUCUS STRANDS FEW /LPF (Neg); RBC,URINE 0-2 /HPF (0-2); WBC,URINE 0-4 /HPF (0-4)
[2021-01-31] MEDS ORDERED: FURO-150 PO (10:03)
[2021-01-31] MEDS ORDERED: FURO20TA4 PO (10:03)
[2021-01-31] MEDS ORDERED: OMEP40CA13 PO (10:03)
[2021-01-31] MEDS ORDERED: ISOS120T13 PO (10:03)
[2021-01-31] MEDS ORDERED: ASPI81TA48 PO (10:03)
[2021-01-31] MEDS ORDERED: UBID100C16 PO (10:29)
[2021-01-31] MEDS ORDERED: VITA400T10 PO (10:29)
[2021-01-31] MEDS ORDERED: ALBU8.5H8 IH (10:29)
[2021-01-31] MEDS ORDERED: CHOL20004 PO (10:29)
[2021-01-31] MEDS ORDERED: LORazepam 0.5 MG tablet PO PRN (10:50)
[2021-01-31] MEDS ORDERED: nitroGLYCERIN 0.4mg SUBLingual tab SL PRN (10:50)
[2021-01-31] MEDS ORDERED: ciprofloxacin 250mg tablet PO ONE (10:50)
[2021-01-31] MEDS ORDERED: metroNIDAZOLE 500mg tablet PO ONE (10:50)
[2021-01-31] MEDS ORDERED: HYDROmorphone inj. 0.5 MG/0.5 ML DISP.SYRIN IV PRN (11:05)
[2021-01-31] MEDS ORDERED: potassium Cl 40MEQ/1/2NS 520ml 520 ML IV PRN ×2 (11:05)
[2021-01-31] MEDS ORDERED: HYDROcodone/acetaminophen 5mg/325mg tablet PO PRN ×2 (11:05→17:35)
[2021-01-31] MEDS ORDERED: magnesium 2GM in 50ml NS 50 ML IV PRN (11:05)
[2021-01-31] MEDS ORDERED: acetaminophen 650mg rectal suppository RC PRN (11:05)
[2021-01-31] MEDS ORDERED: diphenhydrAMINE 25mg capsule PO PRN (11:05)
[2021-01-31] MEDS ORDERED: bisacodyl 10mg suppository rectal RC PRN (11:05)
[2021-01-31] MEDS ORDERED: potassium Cl 20 mEq SR tablet PO PRN ×2 (11:05)
[2021-01-31] MEDS ORDERED: HYDROcodone/acetaminophen 10/325mg tab PO PRN ×2 (11:05→17:35)
[2021-01-31] MEDS ORDERED: ondansetron/PF 4mg/2ml inj IV PRN ×3 (11:05→17:35)
[2021-01-31] MEDS ORDERED: magnesium 4gm in 100ml NS 100 ML IV PRN (11:05)
[2021-01-31] MEDS ORDERED: magnesium hydroxide 30ml (MOM) UD suspension PO PRN (11:05)
[2021-01-31] MEDS ORDERED: acetaminophen 325mg tablet PO PRN ×2 (11:05)
[2021-01-31] MEDS ORDERED: mag hydrox/Alum hydrox/simeth 30ml oral suspension PO PRN (11:05)
[2021-01-31] MEDS ORDERED: magnesium Cl slow-release 64mg tablet PO PRN (11:05)
[2021-01-31] MEDS ORDERED: albuterol 2.5 MG/3 ML nebule NEB PRN (11:10)
[2021-01-31] MEDS: normal saline 1000ml 1,000 ML IV SCH ×2 (11:37→21:45)
[2021-01-31] MEDS: furosemide 20MG tablet PO SCH (11:37)
[2021-01-31 12:19] LABS: HEMOGLOBIN A1C 6.1 % (4.5-6.2)
--- NOTE | 2021-01-31 12:19 | NUR ---
PATIENT'S HOME MEDICATION: ROSUVASTATIN 20 MG BOTTLE SENT TO PHARMACY
--- NOTE | 2021-01-31 12:29 | NUR ---
Patient in room ED 2. I have received report from Lory LEACH and had the opportunity to ask questions and awaiting to assume patient care..
[2021-01-31] MEDS ORDERED: INDOCYANINE GREEN 25 MG/10 ML VIAL IV STA (12:51)
[2021-01-31] MEDS: gabapentin 300mg capsule PO SCH ×2 (13:00→21:41)
[2021-01-31] MEDS: cloNIDine 0.1 mg tablet PO SCH ×2 (13:00→21:00)
--- NOTE | 2021-01-31 13:30 | NUR ---
Received patient to floor with daughter present. prepared for surgery. awaiting call to go to OR
[2021-01-31] MEDS ORDERED: morphine 4 MG/ML inj SYRINge IV PRN (14:50)
[2021-01-31] MEDS ORDERED: meperidine/PF 25mg/ml syringe IV PRN ×3 (14:50)
[2021-01-31] MEDS ORDERED: ringers solution, lacted 1,000 ML IV SCH (14:50)
[2021-01-31] MEDS ORDERED: proCHLORperazine 10 MG/2 ml inj IV PRN (14:50)
[2021-01-31] MEDS: metroNIDAZOLE-Flagyl 500mg/NS 100 ML IV SCH (16:00)
--- NOTE | 2021-01-31 16:00 | NUR ---
patient taken to surgery.
[2021-01-31] MEDS ORDERED: LIDOcaine 1% 30ml preserv. free vial ONE (16:06)
[2021-01-31] MEDS ORDERED: BUPIVAcaine/PF 2.5 mg/ml (0.25%) 30ml vial ONE (16:06)
[2021-01-31] MEDS ORDERED: propofol inj 20 ML IV ONE (16:21)
[2021-01-31] MEDS ORDERED: midazolam 1 mg/ML 2ml injection ONE (16:21)
[2021-01-31] MEDS ORDERED: LIDOcaine 2% (20mg/ml) 5ml vial ONE (16:21)
[2021-01-31] MEDS ORDERED: fentaNYL/PF 50MCG/1 ML 2ML syringe ONE (16:21)
[2021-01-31] MEDS ORDERED: glycopyrrolate 0.2mg/ml inj ONE (16:27)
[2021-01-31] MEDS ORDERED: rocuronium 10mg/ml inj IV ONE (16:27)
[2021-01-31] MEDS ORDERED: sevoflurane 250ml liquid IH ONE (16:27)
[2021-01-31] MEDS ORDERED: neostigmine methylsulfate 1 MG/ML 10ml vial ONE (16:27)
[2021-01-31] MEDS ORDERED: ondansetron/PF 4mg/2ml inj ONE (16:44)
[2021-01-31] MEDS ORDERED: dexamethasone sod phosphate 4mg/ml inj. ONE (16:44)
[2021-01-31] MEDS ORDERED: meperidine/PF 25mg/ml syringe ONE (17:27)
[2021-01-31] MEDS ORDERED: acetaminophen 1,000mg/100ml IV 100 ML IV ONE (17:35)
[2021-01-31] MEDS ORDERED: morphine 4 MG/ML inj SYRINge ONE ×2 (17:44→18:01)
--- NOTE | 2021-01-31 17:45 | NUR ---
Received from OR via BED, accompanied by Anesthesiologist HEAVENLY and report given by Anesthesiolgist. PT DROWSY, MOANING SOFTLY FROM PAIN. OXYGENATING WELL ON 10 LPM O2 VIA MASK, NO RESP DISTRESS NOTED. NAUSEA TREATED WITH ZOFRAN, MORPHINE IV GIVEN FOR ABD INC PAIN. LARGE BANDAIDS TO ABD TROCAR SITES CDI. SCDS ON. VSS.
--- NOTE | 2021-01-31 18:10 | NUR ---
Patient in room SONIDO 348. I have received report from GEE LEACH and had the opportunity to ask questions and assume patient care. Addendum: 01/31/21 at 1843 by Mary Grijalva RN Amended: Links added.
--- NOTE | 2021-01-31 18:10 | NUR ---
POST OP MEDS ORDERED BY ANESTHESIA WERE NOT AVAILABLE IN OMNICELL AT THE TIME I NEEDED THEM, HAD TO OVERRIDE 2 DOSES OF MORPHINE 4 MG FOR PT PAIN. ONLY ABLE TO SCAN ONE DOSE, COMPUTER WOULD NOT ACCEPT SCAN ON 2ND DOSE.
--- NOTE | 2021-01-31 18:29 | NUR ---
Problems reprioritized. Patient report given, questions answered & plan of care reviewed with Odilia LEACH.
--- NOTE | 2021-01-31 18:39 | NUR ---
Patient in room SONIDO 348. I have received report from DAYTON LEACH IN RECOVERY ROOM and had the opportunity to ask questions and will assume patient care upon arrival to the floor. Addendum: 01/31/21 at 1840 by Mary Grijalva RN Amended: Links added.
--- NOTE | 2021-01-31 18:45 | NUR ---
Report called to receiving nurse. Transferred via BED Belongings IN PT ROOM, EXCEPT DENTURES WHICH WERE DELIVERED WITH THE PT BACK TO HER ROOM. VSS, TOLERATING PO FLUIDS WELL. PAIN LEVEL DECREASED TO 3/10 AFTER MEDS GIVEN IN PACU. TRANSFEERED BACK TO 3 SURG IN STABLE CONDITION. Special Issues communicated to receiving nurse.
--- NOTE | 2021-01-31 18:45 | NUR ---
PT ARRIVED TO THE FLOOR FROM THE RECOVERY ROOM AND VOIDED BRP. VSS. AMB WITH ASSIST OF ONE TOLERATED WELL. 4 LARGE LAP SITE BANDADES TO ABD DRY AND INTACT. ON POST OP VITALS VSS.
[2021-01-31] MEDS ORDERED: heparin, porcine 5000 units/ml vial SQ SCH (20:00)
[2021-01-31] MEDS: carVEDilol 12.5mg tablet PO SCH (20:00)
[2021-01-31] MEDS: K and/or MAG REPLACEMENT MC SCH (20:00)
[2021-01-31] MEDS ORDERED: Terazosin 1mg capsule PO SCH (21:00)
--- NOTE | 2021-01-31 21:20 | NUR ---
took hs meds tolerated well with sips of water. no complaints of pain or discomfort at this time.
[2021-01-31] MEDS: ciprofloxacin lact 400MG/200ML 200 ML IV SCH (21:38)
[2021-01-31] MEDS: isosorbide mononitrate 30mg tab.SR.24H PO SCH (21:42)
[2021-01-31] MEDS: heparin, porcine 5000 units/ml vial SQ SCH (21:45)
--- NOTE | 2021-01-31 22:24 | NUR ---
see pct recorded vital signs Addendum: 01/31/21 at 2226 by Mary Grijalva RN Amended: Links added.
--- NOTE | 2021-01-31 23:25 | NUR ---
pt appears comfortable resting eyes closed without s&s of distress at this time.
[2021-02-01] MEDS: metroNIDAZOLE-Flagyl 500mg/NS 100 ML IV SCH ×2 (00:44→07:50)
--- NOTE | 2021-02-01 00:55 | NUR ---
awake flagyl infusing denies need for pain medication at this time.
[2021-02-01 05:58] LABS: BASOPHILS % (AUTO) 0.2 % (0-1); EOSINOPHILS % (AUTO) 0 % (0-6); HEMATOCRIT 44.3 % (35.0-45.0); HEMOGLOBIN 14.8 g/dl (12.0-16.0); LYMPHOCYTES % (AUTO) 12.5 % (21-51); MEAN CORPUSCULAR HEMOGLOBIN 30.1 PG (27.0-31.0); MEAN CORPUSCULAR HGB CONC 33.5 g/dL (33.0-36.5); MEAN PLATELET VOLUME 9.3 FL (7.4-10.4); MONOCYTES # (AUTO) 0.2 X10'3 (0-0.9); MONOCYTES % (AUTO) 3.2 % (2-12); NEUTROPHILS # (AUTO) 6.5 X10'3 (1.8-7.7); NEUTROPHILS % (AUTO) 84.1 % (42-75); PLATELET COUNT 128 X10'3 (140-440); RED BLOOD COUNT 4.92 X10'6 (4.20-5.60); RED CELL DISTRIBUTION WIDTH 15.1 % (11.5-14.5); WHITE BLOOD COUNT 7.7 X10'3 (4.5-11.0)
[2021-02-01 06:20] LABS: ALANINE AMINOTRANSFERASE 30 U/L (12-78); ALBUMIN 3.3 G/DL (3.4-5.0); ALBUMIN/GLOBULIN RATIO 0.9 (1.1-1.5); ALKALINE PHOSPHATASE 76 IU/L (46-116); ANION GAP 10 (8-16); ASPARTATE AMINO TRANSFERASE 23 U/L (10-37); BILIRUBIN,TOTAL 0.4 MG/DL (0.1-1.0); BLOOD UREA NITROGEN 12 MG/DL (7-18); BUN/CREATININE RATIO 13.5 (6.6-38.0); CHLORIDE 106 MMOL/L (99-107); CHOL/HDL RATIO 2.8 (0.00-4.99); CHOLESTEROL 119 MG/DL (0-200); CREATININE 0.89 MG/DL (0.40-0.90); GLUCOSE 134 MG/DL (70-104); HDL CHOLESTEROL 42 MG/DL (35-60); LDL CHOLESTEROL 65 MG/DL (50-100); PHOSPHORUS 3.6 MG/DL (2.3-4.5); POTASSIUM 4.1 MMOL/L (3.5-5.1); SODIUM 141 MMOL/L (135-145); TOTAL CARBON DIOXIDE 25.3 MMOL/L (24-32); TOTAL PROTEIN 6.9 G/DL (6.4-8.2); TRIGLYCERIDES 60 MG/DL (20-135); eGFR 63 ML/MIN
--- NOTE | 2021-02-01 06:26 | NUR ---
Problems reprioritized. Patient report given, questions answered & plan of care reviewed with LEONARDA LEACH.
--- NOTE | 2021-02-01 06:51 | NUR ---
Patient in room SONIDO 348. I have received report from Becky LEACH and had the opportunity to ask questions and assume patient care.
[2021-02-01 07:00] VITALS: BP 147/63
[2021-02-01] MEDS ORDERED: pantoprazole 40mg Tablet.DR PO SCH (07:30)
[2021-02-01] MEDS: gabapentin 300mg capsule PO SCH ×2 (07:47→12:18)
[2021-02-01] MEDS: carVEDilol 12.5mg tablet PO SCH (07:47)
[2021-02-01] MEDS: isosorbide mononitrate 30mg tab.SR.24H PO SCH (07:48)
[2021-02-01] MEDS: cloNIDine 0.1 mg tablet PO SCH ×2 (07:49→12:18)
[2021-02-01] MEDS: ciprofloxacin lact 400MG/200ML 200 ML IV SCH (07:49)
[2021-02-01] MEDS: heparin, porcine 5000 units/ml vial SQ SCH (07:52)
[2021-02-01] MEDS: normal saline 1000ml 1,000 ML IV SCH (07:56)
[2021-02-01] MEDS ORDERED: aspirin 81mg tablet.DR PO SCH (08:00)
[2021-02-01] MEDS ORDERED: vitamin E 400 unit capsule PO SCH (08:00)
[2021-02-01] MEDS ORDERED: NIFEdipine XL 30mg tablet PO SCH (08:00)
[2021-02-01] MEDS ORDERED: cholecalciferol (vitamin D3) 1,000 unit (25mcg) tablet PO SCH (08:00)
[2021-02-01] MEDS ORDERED: furosemide 20MG tablet PO SCH (08:00)
[2021-02-01] MEDS ORDERED: non-formulary drug (Ubidecarenone (Coq-10) 100 MG) PO SCH (08:00)
[2021-02-01] MEDS: K and/or MAG REPLACEMENT MC SCH (08:00)
[2021-02-01] MEDS ORDERED: losartan 50mg tablet PO SCH (08:00)
[2021-02-01] MEDS ORDERED: atorvastatin 20mg tablet PO SCH (08:00)
[2021-02-01 11:00] VITALS: BP 128/59
[2021-02-01] MEDS: furosemide 20MG tablet PO SCH (12:18)
[2021-02-01] MEDS ORDERED: HYDR-3972 PO (13:35)
--- NOTE | 2021-02-01 16:23 | NUR ---
Patient was educated on follow-up care, worsening symptoms, and follow-up care. Iv was removed and canula was intact. Patient stated she had all belongings. She was taken by wheel chair to vehicle.
[2021-02-03] MEDS ORDERED: morphine 4 MG/ML inj SYRINge IV ONE (11:55)
== END 2021-02-01 15:46 | disposition home or self-care (01) | DRG 418 ==
LOC: ER 07:43 → ED HOLD 11:01 → EDBEDREQ 12:02 → SUR 3N 12:55
PROVIDERS: ADMIT Family Medicine; ATTEND Family Medicine
PROC: 8E0W4CZ Robotic Assisted Procedure of Trunk Region, Percutaneous Endoscopic Approach (ICD-10-PCS; 2021-01-31)
PROC: BF532Z0 Other Imaging of Gallbladder and Bile Ducts using Fluorescing Agent, Intraoperative (ICD-10-PCS; 2021-01-31)
PROC: 5A09357 Assistance with Respiratory Ventilation, Less than 24 Consecutive Hours, Continuous Positive Airway Pressure (ICD-10-PCS; 2021-01-31)
PROC: 0FT44ZZ Resection of Gallbladder, Percutaneous Endoscopic Approach (ICD-10-PCS; principal; 2021-01-31 16:27)
DX: K80.62 Calculus of gallbladder and bile duct with acute cholecystitis without obstruction (principal); N39.0 Urinary tract infection, site not specified; E11.40 Type 2 diabetes mellitus with diabetic neuropathy, unspecified; E78.5 Hyperlipidemia, unspecified; G47.33 Obstructive sleep apnea (adult) (pediatric); I11.0 Hypertensive heart disease with heart failure; F12.90 Cannabis use, unspecified, uncomplicated; G89.29 Other chronic pain; Z20.822 Contact with and (suspected) exposure to COVID-19; I25.10 Atherosclerotic heart disease of native coronary artery without angina pectoris; F17.210 Nicotine dependence, cigarettes, uncomplicated; Z60.2 Problems related to living alone; M19.90 Unspecified osteoarthritis, unspecified site; I50.9 Heart failure, unspecified; J45.909 Unspecified asthma, uncomplicated; K21.9 Gastro-esophageal reflux disease without esophagitis; Z79.899 Other long term (current) drug therapy; Z82.49 Family history of ischemic heart disease and other diseases of the circulatory system; Z90.710 Acquired absence of both cervix and uterus; Z95.5 Presence of coronary angioplasty implant and graft; Z88.8 Allergy status to other drugs, medicaments and biological substances; Z80.9 Family history of malignant neoplasm, unspecified; Z71.6 Tobacco abuse counseling; Z79.82 Long term (current) use of aspirin
CPT/HCPCS: 36415; 76700; 80053; 80061; 81001; 82948; 83036; 83690; 83735; 84100; 85025; 87077; 87081; 87088; 87186; 87426; 96374; 96375; 99285; A4215; A4618; A7000; G0378; J0131; J0744; J1100; J1644; J2001; J2060; J2175; J2250; J2270; J2405; J2704; J2710; J3010; J3490; J7030; J7120

== ENCOUNTER 2021-02-08 18:07 | Emergency (ER) | payer MEDICARE ==
[~2021-02-08] VITALS: Ht 167.6 cm; Wt 95.0 kg
[~2021-02-08 18:07] MED LIST changes: +ALBU8.5H8 IH; -ASPI-1265 PO; +ASPI81TA48 PO; +CHOL20004 PO; +FURO-150 PO; +FURO20TA4 PO; +HYDR-3972 PO; +ISOS120T13 PO; +OMEP40CA13 PO; -OXYC10TA47 PO; +UBID100C16 PO; +VITA400T10 PO
[2021-02-08 18:36] LABS: BASOPHILS # (AUTO) 0.1 X10'3 (0-0.2); BASOPHILS % (AUTO) 1.3 % (0-1); EOSINOPHILS # (AUTO) 0.4 X10'3 (0-0.9); EOSINOPHILS % (AUTO) 4.8 % (0-6); HEMATOCRIT 47.2 % (35.0-45.0); LYMPHOCYTES % (AUTO) 21.9 % (21-51); MEAN CORPUSCULAR HEMOGLOBIN 30.1 PG (27.0-31.0); MEAN CORPUSCULAR VOLUME 88.5 FL (78-98); MEAN PLATELET VOLUME 8.7 FL (7.4-10.4); MONOCYTES # (AUTO) 0.9 X10'3 (0-0.9); MONOCYTES % (AUTO) 9.3 % (2-12); NEUTROPHILS # (AUTO) 5.8 X10'3 (1.8-7.7); NEUTROPHILS % (AUTO) 62.7 % (42-75); PLATELET COUNT 160 X10'3 (140-440); RED BLOOD COUNT 5.33 X10'6 (4.20-5.60); WHITE BLOOD COUNT 9.2 X10'3 (4.5-11.0)
[2021-02-08 18:52] LABS: ALANINE AMINOTRANSFERASE 32 U/L (12-78); ALBUMIN 3.8 G/DL (3.4-5.0); ALBUMIN/GLOBULIN RATIO 0.9 (1.1-1.5); ALKALINE PHOSPHATASE 89 IU/L (46-116); ANION GAP 10 (8-16); ASPARTATE AMINO TRANSFERASE 27 U/L (10-37); BILIRUBIN,TOTAL 0.5 MG/DL (0.1-1.0); BLOOD UREA NITROGEN 15 MG/DL (7-18); CALCIUM 9.7 MG/DL (8.5-10.1); CHLORIDE 105 MMOL/L (99-107); CREATININE 0.94 MG/DL (0.40-0.90); GLUCOSE 110 MG/DL (70-104); LIPASE 51 U/L (73-393); POTASSIUM 3.8 MMOL/L (3.5-5.1); SODIUM 142 MMOL/L (135-145); TOTAL CARBON DIOXIDE 27.1 MMOL/L (24-32); TOTAL PROTEIN 8.2 G/DL (6.4-8.2); eGFR 59 ML/MIN
[2021-02-08] MEDS ORDERED: iohexol 300mg/ml 100ml inj. ONE (19:33)
[2021-02-08] MEDS ORDERED: sucralfate 1gm/10ml UD suspension PO SCH (21:00)
[2021-02-08] MEDS ORDERED: sucralfate 1gm/10ml UD suspension PO ONE (21:00)
[2021-02-08] MEDS ORDERED: ONDA4TAB12 PO (21:06)
[2021-02-08] MEDS ORDERED: SUCR1ORA12 PO (21:06)
[2021-02-08 21:44] VITALS: BP 162/75
[2021-02-09] MEDS ORDERED: CIPR-429 PO (15:30)
== END 2021-02-08 21:47 | disposition home or self-care (01) ==
LOC: ER 18:07
DX: R10.84 Generalized abdominal pain (principal); R11.2 Nausea with vomiting, unspecified; I10 Essential (primary) hypertension; J45.909 Unspecified asthma, uncomplicated; E11.9 Type 2 diabetes mellitus without complications; G89.29 Other chronic pain; F12.90 Cannabis use, unspecified, uncomplicated; Z90.710 Acquired absence of both cervix and uterus; Z98.890 Other specified postprocedural states; Z88.8 Allergy status to other drugs, medicaments and biological substances; Z79.82 Long term (current) use of aspirin; Z79.899 Other long term (current) drug therapy
CPT/HCPCS: 36415; 74177; 80053; 83690; 85025; 99285; Q9967

== ENCOUNTER 2021-12-29 09:38 | Emergency (ER) | payer BC, MEDICARE, SELFPAY ==
[~2021-12-29] VITALS: Ht 167.6 cm; Wt 97.3 kg
[~2021-12-29 09:38] MED LIST changes: +ALBU8.5H17 IH; -ALBU8.5H8 IH; -OMEP40CA13 PO; +OMEP40CA21 PO; +ONDA4TAB12 PO; +SUCR1ORA12 PO
[2021-12-29 10:00] VITALS: BP 159/68
--- NOTE | 2021-12-29 10:37 | NUR ---
Pt c/o pain in R Upper FA. Positive engorged veins in R UE.
[2021-12-29] MEDS ORDERED: APIX5TAB3 PO (12:13)
== END 2021-12-29 13:00 | disposition home or self-care (01) ==
LOC: ER 09:38
DX: I80.8 Phlebitis and thrombophlebitis of other sites (principal); M79.601 Pain in right arm; J44.9 Chronic obstructive pulmonary disease, unspecified; I12.9 Hypertensive chronic kidney disease with stage 1 through stage 4 chronic kidney disease, or unspecified chronic kidney disease; E11.22 Type 2 diabetes mellitus with diabetic chronic kidney disease; N18.9 Chronic kidney disease, unspecified; G89.29 Other chronic pain; F17.200 Nicotine dependence, unspecified, uncomplicated; F12.90 Cannabis use, unspecified, uncomplicated; Z90.710 Acquired absence of both cervix and uterus; Z98.890 Other specified postprocedural states; Z88.8 Allergy status to other drugs, medicaments and biological substances; Z79.82 Long term (current) use of aspirin; Z79.899 Other long term (current) drug therapy
CPT/HCPCS: 93971; 99284

== ENCOUNTER 2022-09-14 09:42 | Outpatient (CLI) | payer BC, SELFPAY ==
[2022-09-12 11:42] LABS: ALBUMIN 3.8 G/DL (3.4-5.0); ANION GAP 6 (8-16); BLOOD UREA NITROGEN 13 MG/DL (7-18); BUN/CREATININE RATIO 14.1 (6.6-38.0); CALCIUM 9.2 MG/DL (8.5-10.1); CHLORIDE 101 MMOL/L (99-107); CREATININE 0.92 MG/DL (0.40-0.90); GLUCOSE 109 MG/DL (70-104); POTASSIUM 3.8 MMOL/L (3.5-5.1); SODIUM 140 MMOL/L (135-145); TOTAL CARBON DIOXIDE 32.7 MMOL/L (24-32); eGFR 60 ML/MIN
[~2022-09-14 09:42] MED LIST changes: +APIX5TAB3 PO
[2022-09-14] MEDS ORDERED: iohexol 300mg/ml 100ml inj. ONE (10:15)
[2022-09-14] MEDS ORDERED: diatr meglu/diatrizoate 30ml oral sol.-(3 dose) bottle ONE (11:57)
== END 2022-09-14 23:59 | disposition home or self-care (01) ==
LOC: RAD 09:42
PROVIDERS: ATTEND Surgery
DX: K57.30 Diverticulosis of large intestine without perforation or abscess without bleeding (principal); K42.9 Umbilical hernia without obstruction or gangrene; K76.0 Fatty (change of) liver, not elsewhere classified; R16.0 Hepatomegaly, not elsewhere classified; K40.90 Unilateral inguinal hernia, without obstruction or gangrene, not specified as recurrent; M43.8X4 Other specified deforming dorsopathies, thoracic region; I70.0 Atherosclerosis of aorta; I70.8 Atherosclerosis of other arteries; Z90.710 Acquired absence of both cervix and uterus; Z90.49 Acquired absence of other specified parts of digestive tract
CPT/HCPCS: 36415; 74177; 80048; J3490; Q9963; Q9967

== ENCOUNTER 2022-10-14 10:05 | Day surgery (SDC) | payer BC, SELFPAY ==
[~2022-10-14] VITALS: Ht 167.6 cm; Wt 92.6 kg
[2022-10-14] VITALS (21 sets, daily range): BP systolic 107–188; BP diastolic 53–85
[~2022-10-14 10:05] MED LIST changes: +DOCUMENT DATE & TIME OF BETA-BLOCKER PO ONE; +ceFAZolin inj. 2,000 MG in dextrose 5%-water 100 ML IV ONE; +famotidine 20mg tablet PO ONE; +ringers solution, lacted 1,000 ML IV SCH
--- NOTE | 2022-10-14 10:20 | NUR ---
PREPARE PATIENT PRE-SURGERY, VSS, IV INSERTED ON RIGHT HAND 20G, PATIENT TOLERATED PROCEDURE. EXTENSIVELY INTERVIEWED FOR COMPLICATED MEDICAL HISTORY. PATIENT STATED THAT PATIENT HAD CHRONIC BACK PAIN, UNABLE TO STAY ON BACK, CAME WITH WHEELCHAIR, LABS DRAWN AND SENT AND REVIEWED.
--- NOTE | 2022-10-14 10:30 | NUR ---
PATIENT STATED THAT PRIOR TO SURGERY USE HIBICLENS KNOWLEDGE ARCHITECT X2 AND REFUSED TO HAVE BLOOD TRANSFUSION. REFUSAL OF BLOOD TRANSFUSION SIGNED.
[2022-10-14 11:52] LABS: BASOPHILS # (AUTO) 0.1 X10'3 (0-0.2); EOSINOPHILS # (AUTO) 0.1 X10'3 (0-0.9); LYMPHOCYTES # (AUTO) 2.1 X10'3 (1.1-4.8); LYMPHOCYTES % (AUTO) 22.8 % (21-51); MEAN CORPUSCULAR HGB CONC 33.4 g/dL (33.0-36.5); MEAN CORPUSCULAR VOLUME 89.8 FL (78-98); MEAN PLATELET VOLUME 8.8 FL (7.4-10.4); MONOCYTES # (AUTO) 0.6 X10'3 (0-0.9); MONOCYTES % (AUTO) 6.3 % (2-12); NEUTROPHILS # (AUTO) 6.2 X10'3 (1.8-7.7); NEUTROPHILS % (AUTO) 68.9 % (42-75); PRE OP HEMATOCRIT 45.1 % (35.0-45.0); PRE OP HEMOGLOBIN 15.1 g/dL (12.0-16.0); PRE OP PLATELET COUNT 148 X10'3 (140-440); RED BLOOD COUNT 5.02 X10'6 (4.20-5.60); RED CELL DISTRIBUTION WIDTH 14.3 % (11.5-14.5)
[2022-10-14 12:11] LABS: ALBUMIN 3.4 G/DL (3.4-5.0); ALBUMIN/GLOBULIN RATIO 0.9 (1.1-1.5); ALKALINE PHOSPHATASE 73 IU/L (46-116); BLOOD UREA NITROGEN 11 MG/DL (7-18); BUN/CREATININE RATIO 12.9 (6.6-38.0); CHLORIDE 102 MMOL/L (99-107); CREATININE 0.85 MG/DL (0.40-0.90); PRE OP ALT 18 U/L (30-65); PRE OP ANION GAP 6 (8-16); PRE OP AST 18 U/L (10-37); PRE OP BILIRUB, TOTAL 0.5 MG/DL (0.0-1.0); PRE OP GLUCOSE 122 MG/DL (70-104); PRE OP POTASSIUM 3.8 MMOL/L (3.4-5.1); PRE OP SODIUM 137 MMOL/L (135-145); TOTAL CARBON DIOXIDE 28.7 MMOL/L (24-32); TOTAL PROTEIN 7.1 G/DL (6.4-8.2); eGFR 66 ML/MIN
[2022-10-14 12:16] LABS: HEMOGLOBIN A1C 6.1 % (4.5-6.2)
--- NOTE | 2022-10-14 12:30 | NUR ---
DR. BENNETT AT BEDSIDE AND INTERVIEWED PATIENT ABOUT PROCEDURES. PATIENT COMPLAINED OF CHRONIC BACK PAIN, DR. BENNETT REQUESTED ANESTHESIA TO ORDER DILAUDID 2 MG IV ONCE IF APPROPRIATE. WAITING FOR ANESTHESIA TO ARRIVE.
[2022-10-14] MEDS ORDERED: morphine 4 MG/ML inj SYRINge IM STA (13:58)
[2022-10-14] MEDS ORDERED: morphine 4 MG/ML inj SYRINge IV STA (14:16)
--- NOTE | 2022-10-14 14:22 | NUR ---
PT ATTACHED TO CARDIAC, BP AND PULSE OX MONITOR
[2022-10-14] MEDS ORDERED: ondansetron/PF 4mg/2ml inj IV ONE (14:30)
--- NOTE | 2022-10-14 14:37 | NUR ---
PT MEDICATED WITH MORPHINE 4 MG, PT NAUSEATED AND VOMITTING, DRY MACKENZIE, DR RODRIGUEZ CALLED, ORDERS RECEIVED FOR ZOFRAN, GIVEN WITH GOOD RESULTS
[2022-10-14] MEDS ORDERED: BUPIVAcaine/PF 2.5 mg/ml (0.25%) 30ml vial ONE (14:40)
--- NOTE | 2022-10-14 15:00 | NUR ---
RECEIVED PATIENT FROM PAS. VSS. PATIENT STATED PATIENT IS AT TOLERABLE LEVEL.
--- NOTE | 2022-10-14 15:00 | NUR ---
PT TRANSFERRED TO RECOVERY ROOM AWAITING DR BENNETT. PT STATES PAIN IS NOW A 4 ON 1-10 SCALE, NAUSEA HAS SUBSIDED
--- NOTE | 2022-10-14 15:20 | NUR ---
UPDATED PATIENT'S FAMILY ABOUT PATIENT SURGERY STATUS. ALL QUESTIONS ANSWERED.
[2022-10-14] MEDS ORDERED: sevoflurane 250ml liquid IH ONE (16:14)
[2022-10-14] MEDS ORDERED: albuterol 60 PUFF/8GM Inhaler IH ONE (16:14)
--- NOTE | 2022-10-14 16:15 | NUR ---
PATIENT LEFT FOR OR.
[2022-10-14] MEDS ORDERED: midazolam 1 mg/ML 2ml injection ONE (16:29)
[2022-10-14] MEDS ORDERED: BUPIVACAINE liposomal/PF 13.3 MG/ML vial IM ONE (16:40)
[2022-10-14] MEDS ORDERED: proCHLORperazine 10 MG/2 ml inj IV PRN (16:50)
[2022-10-14] MEDS ORDERED: hydrALAZINE 20mg/ml inj. IV PRN (16:50)
[2022-10-14] MEDS ORDERED: labetalol 20mg/4ml (5mg/ml) syringe IV PRN (16:50)
[2022-10-14] MEDS ORDERED: meperidine/PF 25mg/ml syringe IV PRN ×2 (16:50)
[2022-10-14] MEDS ORDERED: morphine 2 MG/ML inj. syringe IV PRN (16:50)
[2022-10-14] MEDS ORDERED: acetaminophen 1,000mg/100ml IV 100 ML IV PRN (16:50)
[2022-10-14] MEDS ORDERED: ringers solution, lacted 1,000 ML IV SCH (16:50)
[2022-10-14] MEDS ORDERED: ondansetron/PF 4mg/2ml inj IV PRN (16:50)
[2022-10-14] MEDS ORDERED: fentaNYL /PF 50mcg/ml 5ml ampule ONE (16:55)
[2022-10-14] MEDS ORDERED: propofol inj 20 ML IV ONE (16:55)
[2022-10-14] MEDS ORDERED: LIDOcaine 2% (20mg/ml) 5ml vial ONE (16:55)
[2022-10-14] MEDS ORDERED: rocuronium 10mg/ml inj IV ONE (16:55)
[2022-10-14] MEDS ORDERED: ondansetron/PF 4mg/2ml inj ONE (16:56)
[2022-10-14] MEDS ORDERED: dexamethasone sod phosphate 4mg/ml inj. ONE (16:56)
[2022-10-14] MEDS ORDERED: glycopyrrolate 0.2mg/ml inj ONE (17:36)
[2022-10-14] MEDS ORDERED: neostigmine methylsulfate 1 MG/ML 10ml vial ONE (17:36)
--- NOTE | 2022-10-14 17:50 | NUR ---
Received from OR via KARENA , accompanied by Anesthesiologist DR RODRIGUEZ and report given by Anesthesiolgist. PT PRESNT WITH PIV 20G RIGHT HAND, ABD DRESSING NAZANIN, VSS. Addendum: 10/14/22 at 1801 by Macie Michaels RN, RN Amended: Links added.
[2022-10-14] MEDS: meperidine/PF 25mg/ml syringe IV PRN ×2 (18:13→19:06)
[2022-10-14] MEDS ORDERED: HYDROcodone/acetaminophen 5mg/325mg tablet PO ONE (18:20)
[2022-10-14] MEDS: morphine 4 MG/ML inj SYRINge IV PRN ×3 (18:56→19:34)
--- NOTE | 2022-10-14 19:20 | NUR ---
PT REPORTS THAT "I HAVE CHRONIC BACK PAIN AND I TAKE NORCO 5/325, 4X PER DAY." PT ALSO REPORTS "I CAN'T GET AWAY FROM MY BACK PAIN." PT PAIN NOT WELL CONTROLLED DUE TO CHRONIC BACK PAIN. PT HAS RX OF NORCO, 84 PILLS PICKED UP FROM PHARMACY 10/05/22.
--- NOTE | 2022-10-14 19:50 | NUR ---
PT HAS MET ALL DC CRITERIA. IV DC'D WITH CANNULA INTACT. PT UP TO WHEELCHAIR, LIZA LEACH TOOK PT TO PRIVATE VEHICLE WHERE PT'S SON KAVITA MET AND TOOK PT TO HOME IN [place]. Addendum: 10/14/22 at 1999 by Macie Michaels RN, RN Amended: Links added.
== END 2022-10-14 19:50 | disposition home or self-care (01) ==
LOC: PAS 10:05
PROVIDERS: ATTEND Surgery
DX: K43.6 Other and unspecified ventral hernia with obstruction, without gangrene (principal); I25.10 Atherosclerotic heart disease of native coronary artery without angina pectoris; G47.33 Obstructive sleep apnea (adult) (pediatric); I10 Essential (primary) hypertension; J44.9 Chronic obstructive pulmonary disease, unspecified; M19.90 Unspecified osteoarthritis, unspecified site; G89.29 Other chronic pain; M54.2 Cervicalgia; E11.9 Type 2 diabetes mellitus without complications; F17.210 Nicotine dependence, cigarettes, uncomplicated; Z95.5 Presence of coronary angioplasty implant and graft; Z80.9 Family history of malignant neoplasm, unspecified; Z83.3 Family history of diabetes mellitus; Z90.49 Acquired absence of other specified parts of digestive tract; Z90.710 Acquired absence of both cervix and uterus; Z98.51 Tubal ligation status; Z98.1 Arthrodesis status; Z79.82 Long term (current) use of aspirin; Z79.899 Other long term (current) drug therapy; Z79.01 Long term (current) use of anticoagulants; Z88.8 Allergy status to other drugs, medicaments and biological substances
CPT/HCPCS: 36415; 49594; 64488; 80053; 82948; 83036; 85025; 93005; C1781; C9290; J0131; J0690; J1100; J2175; J2250; J2270; J2405; J2704; J2710; J3010; J3490; J7030; J7060; J7120; Z7506; Z7508; Z7512; A4615; A4618; A7000

== ENCOUNTER 2024-08-26 08:45 | Day surgery (SDC) | payer BC ==
[2024-08-26] VITALS (10 sets, daily range): BP systolic 107–157; BP diastolic 44–69; PULSE 14–61; RESP 14; TEMP 98.1; O2SAT 92–95
[~2024-08-26] VITALS: Ht 167.6 cm; Wt 96.4 kg
[~2024-08-26 08:45] MED LIST changes: -DOCUMENT DATE & TIME OF BETA-BLOCKER PO ONE; -HYDR-3972 PO; -LOSA100T57 PO; +LOSA100T58 PO; -NIFE90TA44 PO; +NIFE90TA70 PO; -ONDA4TAB12 PO; -SUCR1ORA12 PO; -ceFAZolin inj. 2,000 MG in dextrose 5%-water 100 ML IV ONE; -famotidine 20mg tablet PO ONE; -ringers solution, lacted 1,000 ML IV SCH
[2024-08-26] MEDS ORDERED: normal saline 1,000 ML IV SCH (09:20)
[2024-08-26 09:42] LABS: BASOPHILS # (AUTO) 0.1 X10'3 (0-0.2); BASOPHILS % (AUTO) 0.7 % (0-1); EOSINOPHILS # (AUTO) 0.2 X10'3 (0-0.9); EOSINOPHILS % (AUTO) 3.3 % (0-6); HEMATOCRIT 44.5 % (35.0-45.0); HEMOGLOBIN 14.7 g/dl (12.0-16.0); LYMPHOCYTES # (AUTO) 1.8 X10'3 (1.1-4.8); LYMPHOCYTES % (AUTO) 24.8 % (21-51); MEAN CORPUSCULAR HEMOGLOBIN 30.6 PG (27.0-31.0); MEAN CORPUSCULAR HGB CONC 33.1 g/dL (33.0-36.5); MEAN CORPUSCULAR VOLUME 92.5 FL (78-98); MEAN PLATELET VOLUME 8.6 FL (7.4-10.4); MONOCYTES # (AUTO) 0.5 X10'3 (0-0.9); MONOCYTES % (AUTO) 7.5 % (2-12); NEUTROPHILS # (AUTO) 4.5 X10'3 (1.8-7.7); NEUTROPHILS % (AUTO) 63.7 % (42-75); PLATELET COUNT 158 X10'3 (140-440); RED BLOOD COUNT 4.81 X10'6 (4.20-5.60); RED CELL DISTRIBUTION WIDTH 14.7 % (11.5-14.5); WHITE BLOOD COUNT 7.1 X10'3 (4.5-11.0)
[2024-08-26 09:54] LABS: TOTAL CARBON DIOXIDE 28.8 MMOL/L (24-32)
[2024-08-26] MEDS: sodium bicarbonate 1meq/ml syr 150 ML in dextrose 5%-water 1,000 ML IV ONE (09:58)
[2024-08-26 10:04] LABS: ALBUMIN 3.8 G/DL (3.4-5.0); ANION GAP 6 (8-16); BLOOD UREA NITROGEN 16 MG/DL (7-18); BUN/CREATININE RATIO 15.8 (10.0-20.0); CHLORIDE 104 MMOL/L (99-107); CREATININE 1.01 MG/DL (0.40-0.90); GLUCOSE 130 MG/DL (70-104); MAGNESIUM 2.2 MG/DL (1.5-2.4); POTASSIUM 3.8 MMOL/L (3.5-5.1); SODIUM 139 MMOL/L (135-145); eCRCL 47 ML/MIN; eGFR 54 ML/MIN
[2024-08-26 10:05] LABS: PROTHROMBIN TIME 10.1 SECONDS (9.0-12.0)
[2024-08-26] MEDS: diphenhydrAMINE 25mg capsule PO PRN (12:20)
[2024-08-26] MEDS ORDERED: LIDOcaine 1% (10mg/ml) 2ml vial ONE (13:10)
[2024-08-26] MEDS ORDERED: iohexol 350MG/ML 100ml bottle IV ONE (13:11)
[2024-08-26] MEDS ORDERED: midazolam 1 mg/ML 2ml injection ONE ×2 (13:11→13:30)
[2024-08-26] MEDS ORDERED: verapamil 2.5 mg/ml inj IV ONE (13:11)
[2024-08-26] MEDS ORDERED: heparin 1,000unit/ml 10ml vial 10 ML ONE (13:11)
[2024-08-26] MEDS ORDERED: iohexol 350 MG/ML 50ML vial IV ONE ×2 (13:11→13:54)
[2024-08-26] MEDS ORDERED: fentaNYL/PF 50MCG/1 ML 2ML syringe ONE (13:11)
[2024-08-26] MEDS ORDERED: nitroGLYCERIN 500mcg/5mL D5W 5 ML IV ONE (13:11)
[2024-08-26] MEDS ORDERED: clopidogrel 300mg tablet ONE (14:18)
[2024-08-26] MEDS ORDERED: aspirin 325mg tablet ONE (14:22)
[2024-08-26] MEDS ORDERED: CLOP75TA34 PO (14:52)
[2024-08-26] MEDS ORDERED: ASPI-1265 PO (14:54)
[2024-08-26] MEDS ORDERED: FLEC100T PO (14:55)
[2024-08-26] MEDS ORDERED: ASPI81TA52 PO (14:57)
[2024-08-26] MEDS ORDERED: proCHLORperazine 10 MG/2 ml inj IV PRN (15:05)
[2024-08-26] MEDS ORDERED: ondansetron/PF 4mg/2ml inj IV PRN (15:05)
[2024-08-26] MEDS ORDERED: HYDROcodone/acetaminophen 5mg/325mg tablet PO PRN (15:05)
[2024-08-26] MEDS ORDERED: HYDROcodone/acetaminophen 10/325mg tab PO PRN (15:05)
== END 2024-08-26 18:00 | disposition home or self-care (01) ==
LOC: SSTAY O 08:45
PROVIDERS: ATTEND Internal Medicine Cardiovascular Disease
DX: I25.119 Atherosclerotic heart disease of native coronary artery with unspecified angina pectoris (principal); I49.3 Ventricular premature depolarization; R94.31 Abnormal electrocardiogram [ECG] [EKG]; I12.9 Hypertensive chronic kidney disease with stage 1 through stage 4 chronic kidney disease, or unspecified chronic kidney disease; E11.22 Type 2 diabetes mellitus with diabetic chronic kidney disease; N18.9 Chronic kidney disease, unspecified; E78.5 Hyperlipidemia, unspecified; J44.9 Chronic obstructive pulmonary disease, unspecified; E66.9 Obesity, unspecified; G47.30 Sleep apnea, unspecified; K21.9 Gastro-esophageal reflux disease without esophagitis; F41.9 Anxiety disorder, unspecified; F32.A Depression, unspecified; F12.90 Cannabis use, unspecified, uncomplicated; Z79.891 Long term (current) use of opiate analgesic; Z79.899 Other long term (current) drug therapy; Z90.49 Acquired absence of other specified parts of digestive tract; Z90.710 Acquired absence of both cervix and uterus; Z90.722 Acquired absence of ovaries, bilateral; Z98.890 Other specified postprocedural states; Z68.34 Body mass index [BMI] 34.0-34.9, adult
CPT/HCPCS: 36415; 80048; 83735; 85025; 85610; 93005; 93458; 93571; 99152; 99153; A6258; C1874; C9600; J1644; J2003; J2250; J3010; J3490; J7030; J7070; Q0163; Q9967; A6402; C1751; C1769; C1894